=== PATIENT | female | born 1960 | race African-American/Black ===

== ENCOUNTER 2019-08-12 12:22 | Emergency (ER) | payer BC, OTHER ==
[~2019-08-12] VITALS: Ht 160 cm; Wt 70.3 kg
[~2019-08-12 12:22] MED LIST: LANTUS SOL100 UNIT/1 SQ; MACROBID 100 M100 M1 PO; METFORMIN HCL500 MG PO; PRINIVIL5 MG PO; ZOCOR20 MG PO
[2019-08-12] MEDS ORDERED: ASPIR 8181 M1 PO (12:30)
[2019-08-12] MEDS ORDERED: NORCO 5-325 TA1 EAC1 PO (13:13)
[2019-08-12 13:22] VITALS: BP 160/70
== END 2019-08-12 13:22 | disposition home or self-care (01) ==
LOC: ER 12:22
DX: M25.512 Pain in left shoulder (principal); M25.552 Pain in left hip; E11.9 Type 2 diabetes mellitus without complications; W00.0XXA Fall on same level due to ice and snow, initial encounter; Y92.89 Other specified places as the place of occurrence of the external cause; Y93.89 Activity, other specified; Y99.8 Other external cause status